=== PATIENT | female | born 1940 | race Caucasian/White ===

== ENCOUNTER 2018-07-01 13:58 | Outpatient (CLI) | payer MEDICARE, MEDICAID, SELFPAY ==
[2018-07-01 15:44] LABS: Anion Gap 11.4 mmol/L (3-11); BUN 15 mg/dL (7-18); CO2 26.6 mmol/L (21.0-32.0); Calcium 9.3 mg/dL (8.5-10.1); Chloride 106 mmol/L (98-107); Estimated GFR 48.04 (mL/min/1.73m2); Glucose 93 mg/dL (70-100); Potassium 3.8 mmol/L (3.5-5.1); Sodium 144 mmol/L (136-145)
[2018-07-01 15:59] LABS: TSH (W/Ref FT4) 0.44 uIU/mL (0.358-3.74)
== END 2018-07-01 14:18 ==
PROVIDERS: PCP Nurse Practitioner Family; Visit Provider Nurse Practitioner Family
DX: E03.9 Hypothyroidism, unspecified (principal); N18.3 Chronic kidney disease, stage 3 (moderate)
CPT/HCPCS: 36415; 80048; 84443

== ENCOUNTER → 2018-09-08 12:15 | Outpatient (BNVA) | payer MEDICARE, MEDICAID, SELFPAY | PROVIDERS: PCP Nurse Practitioner Family; Visit Provider Psychiatry & Neurology Neurology | DX: R25.1 Tremor, unspecified (principal); G43.109 Migraine with aura, not intractable, without status migrainosus; R26.9 Unspecified abnormalities of gait and mobility; G43.009 Migraine without aura, not intractable, without status migrainosus; I12.9 Hypertensive chronic kidney disease with stage 1 through stage 4 chronic kidney disease, or unspecified chronic kidney disease; N18.3 Chronic kidney disease, stage 3 (moderate) | CPT/HCPCS: 99205 ==

== ENCOUNTER 2020-05-15 13:17 | Outpatient (REF) | payer MEDICARE, MEDICAID, SELFPAY ==
[2020-05-15 12:29] LABS: Abs Immature Grans 0.03 10^3/uL (0.0-0.06); Absolute Basophil Count 0.04 10^3/uL (0.0-0.2); Absolute Eosinophil Count 0.23 10^3/uL (0.0-0.7); Absolute Lymphocyte Count 1.61 10^3/uL (1.2-3.4); Absolute Monocyte Count 0.71 10^3/uL (0.1-0.8); Absolute Neutrophil Count 3.39 10^3/uL (1.2-6.7); Basophils % 0.7; Eosinophils % 3.8; HCT 32.5 % (36.0-46.0); HGB 10.2 g/dL (11.2-15.7); Immature Grans % 0.5; Lymphocytes % 26.8; MCH 25.5 pg (27.0-33.0); MCHC 31.4 % (32.0-36.0); MCV 81.3 fL (80-95); Monocytes % 11.8; Neutrophils % 56.4; Nucleated RBC 0 %; Platelet Count 427 10^3/uL (130-400); RDW 16.2 % (11.7-14.6); RDW-SD 48.4 fL; WBC 6.01 10^3/uL (4.4-10.8)
[2020-05-15 13:13] LABS: Anion Gap 7.8 mmol/L (3-11); BUN 9 mg/dL (7-18); CO2 25.2 mmol/L (21.0-32.0); CREATININE 0.74 mg/dL (0.55-1.02); Calcium 8.6 mg/dL (8.5-10.1); Chloride 106 mmol/L (98-107); Glucose 57 mg/dL (74-106); Potassium 3.8 mmol/L (3.5-5.1); Sodium 139 mmol/L (136-145); TSH (W/Ref FT4) 0.18 uIU/mL (0.36-3.74)
[2020-05-15 13:29] LABS: FREE T4 1.44 ng/dL (0.76-1.46)
[2020-05-16 10:41] LABS: Prealbumin 9 mg/dL (20-40)
== END 2020-05-15 13:37 ==
LOC: LBN 13:17
PROVIDERS: PCP Nurse Practitioner Family; Visit Provider Nurse Practitioner Adult Health
DX: E03.9 Hypothyroidism, unspecified (principal); N18.30 Chronic kidney disease, stage 3 unspecified; M81.0 Age-related osteoporosis without current pathological fracture; R63.4 Abnormal weight loss
CPT/HCPCS: 80048; 84134; 84439; 84443; 85025

== ENCOUNTER 2021-11-18 10:49 | Outpatient (REF) | payer MEDICARE, MEDICAID, SELFPAY ==
[2021-11-18 15:24] LABS: Anion Gap 10.5 mmol/L (3-11); BUN 13 mg/dL (7-18); CO2 24.5 mmol/L (21.0-32.0); CREATININE 0.9 mg/dL (0.55-1.02); Calcium 8.8 mg/dL (8.5-10.1); Chloride 107 mmol/L (98-107); Glucose 76 mg/dL (74-106); Sodium 142 mmol/L (136-145); TSH (W/Ref FT4) 0.04 uIU/mL (0.36-3.74)
== END 2021-11-18 10:50 | disposition home or self-care (01) ==
LOC: LBN 10:49
PROVIDERS: PCP Nurse Practitioner Adult Health; Visit Provider Nurse Practitioner Adult Health
DX: E03.9 Hypothyroidism, unspecified (principal); N18.30 Chronic kidney disease, stage 3 unspecified; Z13.1 Encounter for screening for diabetes mellitus
CPT/HCPCS: 80048; 84439; 84443

== ENCOUNTER 2022-09-08 20:27 | Outpatient (REF) | payer MEDICARE, MEDICAID, SELFPAY ==
[2022-09-08 16:01] LABS: Anion Gap 3.6 mmol/L (3-11); BUN 11 mg/dL (7-18); CO2 34.4 mmol/L (21.0-32.0); CREATININE 0.8 mg/dL (0.55-1.02); Calcium 9.2 mg/dL (8.5-10.1); Chloride 104 mmol/L (98-107); Estimated GFR 73.52 (mL/min/1.73m2); Glucose 87 mg/dL (74-106); Potassium 4.1 mmol/L (3.5-5.1); Sodium 142 mmol/L (136-145); TSH (W/Ref FT4) 1.15 uIU/mL (0.36-3.74)
== END 2022-09-08 20:28 | disposition home or self-care (01) ==
LOC: LBN 20:27
PROVIDERS: PCP Nurse Practitioner Adult Health; Visit Provider Nurse Practitioner Adult Health
DX: E03.9 Hypothyroidism, unspecified (principal); R06.09 Other forms of dyspnea; N18.30 Chronic kidney disease, stage 3 unspecified; J44.9 Chronic obstructive pulmonary disease, unspecified; Z99.81 Dependence on supplemental oxygen
CPT/HCPCS: 80048; 84443

== ENCOUNTER 2023-04-30 13:59 | Inpatient (IN) | payer OTHER, SELFPAY ==
[2023-04-30 14:59] VITALS: PULSE 98; TEMP 37.2; O2SAT 99
[2023-04-30 15:50] VITALS: O2SAT 100
[2023-04-30] MEDS: fentaNYL 12 MCG PATCH TD (16:25)
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
--- NOTE | 2023-04-30 23:04 | PGE_ITS ---
Date of Service Date of service: 04/30/23 Time of Service: 22:00 Assessment and Plan Assessment and plan (1) Hospice care patient: Status: Acute (2) Decreased functional mobility and endurance: Status: Acute (3) Protein calorie malnutrition: Status: Chronic Qualifiers: Protein-calorie malnutrition severity: severe Qualified Code(s): E43 - Unspecified severe protein-calorie malnutrition (4) Chronic pain: Status: Chronic Qualifiers: Chronic pain type: chronic pain syndrome Qualified Code(s): G89.4 - Chronic pain syndrome (5) Chronic leg pain: Status: Chronic Qualifiers: Laterality: bilateral Qualified Code(s): M79.604 - Pain in right leg; M79.605 - Pain in left leg; G89.29 - Other chronic pain Subjective Subjective Patient reports: still having pain (on movement -- declining any re-positioning or cleaning or personal care) and tolerating liquids well Interval history since last seen: Pt seen when notified she is declining all meds, but c/o pain .. either when approached, attempted to reposition/washing Sat @ bedside in attempt to build rapport ... mild confusion, but feisty and adamant about not being moved/touched Emma shared that she didn't know why her son was angry, nor why they did not speak that day .. we called him and they spoke by phone > 15min I was faviola to add padding to side-board and place linen between ankles [very painful] and add a blanket I was able to mention medications .. she admitted taking ativan at times .. I recommended she reconsider ativan this evening .. she declined bu did agree she'd be able to ask for it if she changed her mind .. she drank a good amount over the course of our visit (30-40 min) .. she declined the pudding. I left request for basic care -- to offer her her drink hourly .. and to offer to call Truman again in approx 2 hours {I told Emma this same thing] I asked about how to change her, and she was adament not to be moved/changed/washed (I said no) .. I shared that should she change her mind, staff would trial morphine, wait ~ 20-30 minutes, then try... Emma shared that Riya changes her @ home .. but it did not seem likely to have Riya help her while in the hospital. I had turned down the tv volume while she s/w Truman .. she asked to turn back up ... She did nod when asked it I could try to turn down the lights .. I left tv on, curtain partially drawn.. [ ] offer drink hourly while awake .. she's able to hold it herself, but may need help with straw [ ] offer a call to Truman should she still be up @ midnight and want to talk with him again Objective Last Vital Signs Temp 98.9 F 04/30/23 14:59 Pulse 98 H 04/30/23 14:59 Pulse Ox 100 04/30/23 15:50 Time Spent with Patient Time Spent with Patient: 35-49 minutes Time was spent: referring, communicating with other health healthcare administrative assistant, counseling the patient and care coordination
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
--- NOTE | 2023-05-01 14:42 | CHAPLAIN ---
Emma is a hospice patient, here for a five-day respite period and pain management, but could on this admission, according to Hospice notes. Emma lives downstairs from her son who has been her primary care analyst. She was decline personal care because of pain. I visited twice today and she accepted offers of help to take sips of water. According to Hospice notes, family members have been in to visit today. Emma appears to be frail, and did not respond much, one-word answers when I spoke with her. I let her know that ventilating expert is available 10/11 if she would like company at any time.
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
[2023-05-03] MEDS: fentaNYL 12 MCG PATCH TD (09:45)
[2023-05-03] MEDS: fentaNYL 25 MCG PATCH TD (09:47)
[2023-05-03] MEDS: MORPHine 4 MG/ML SYR IV/SC (10:05)
[2023-05-03] MEDS: LORazepam 1 MG TAB PO ×2 (13:17→14:38)
--- NOTE | 2023-05-03 19:48 | NUR.NOTE ---
Nursing Note: upon entering, and shift report it was told to me that she had been given ativan and morphine today per family request to keep her comfortable. this rn was checking on pt and doing a breif comfort care assessment pt was found to be sedated. able to be aroused with minimal interaction from pt. pt appears to be breathing comfortably at this time, was able to say im fine. wctm.
--- NOTE | 2023-05-04 00:43 | NUR.NOTE ---
Nursing Note: pt denying repositioning, is still very sedated. pt refusing to have any more meds at this time. pt denies brief check. wctm
--- NOTE | 2023-05-04 08:55 | PDOC.CMPRO ---
Date of service: 05/04/23 Time of Service: 08:56 Care Management Progress Note Progress Note Text Progress Note Text: S/O:Emma remains on hospice respite. She is scheduled to return home tomorrow with her son as caregiver. She has appeared comfortable and was smiling earlier in the day although she does not communicate much verbally. A: Emma is an 82 year old woman admitted on 04/30/23 for hospice respite P:Emma will discharge back home on Thursday after her 5 days of respite care. She will follow up with the hospice care team and transport via EMS coordinated by CM.
--- NOTE | 2023-05-05 08:41 | CMPROGNOTE_ITS ---
Date of service: 05/05/23 Time of Service: 08:41 Care Management Progress Note Progress Note Text Progress Note Text: S/O: Emma was lying in bed comfortably when CM visited with her. Consuelo, lithography contact worker, was in the room visiting as well. Emma was changed to symptom management today, and will remain at [facility] for end of life care. Consuelo stated that she communicated this with her family, who is happy with the plan. CM will continue to follow. A: Emma is an 82 year old woman admitted on 04/30/23 for hospice respite P:Emma will remain at [facility] for end of life care. Hospice and CM will continue to follow.
[2023-05-05] MEDS: HYDROmorphone 100 MG in CADD PUMP CASSETTE 1 EACH, Normal Saline 90 ML SC INF (09:25)
[2023-05-05] MEDS: fentaNYL 25 MCG PATCH TD (09:40)
[2023-05-05] MEDS: fentaNYL 12 MCG PATCH TD (09:44)
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
--- NOTE | 2023-05-05 15:37 | CHAPLAIN ---
The social scientist from Hospice was sitting with Emma when I visited. She said Emma is not talking or responsive now. Emma's son and sister have been into visit. The social scientist wasn't sure if they would return. Emma lives alone in an apartment and her son lives in the apartment above her and would check on her. She came to [facility] for five days of Hospice respite, however it's likely she will stay here now. I will continue to visit.
--- NOTE | 2023-05-05 18:36 | NUR.NOTE ---
Family was called about the change in status with patient. around 2pm. after multiple attempts of trying to reach out.
[2023-05-05 23:12] VITALS: RESP 8
--- NOTE | 2023-05-06 02:55 | NUR.NOTE ---
This scenario writer received a call from pt's son, Truman, requesting an update. Update on pt's status given to Truman, made aware that pt sleeping comfortably and has not been awake tonight. Truman states if she dies and you guys try to call us and we don't answer, you can leave a message. Truman also states that he plans to visit later today with his sister and will reach out in the AM for an update from staff. All questions answered. Nursing Note:
--- NOTE | 2023-05-06 09:27 | PDOC.CMPRO ---
Date of service: 05/06/23 Time of Service: 16:09 Care Management Progress Note Progress Note Text Progress Note Text: S/O:Emma is receiving hydromorphone via sc infusion. She was lying in bed and appeared comfortable when CM went to see her. She has been somnolent and did not respond verbally to CM. A: Emma is an 82 year old woman admitted on 04/30/23 for hospice respite P:Emma will remain at [facility] for end of life care. Hospice and CM will continue to follow.
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
--- NOTE | 2023-05-06 16:38 | CHAPLAIN ---
Emma continues to be unresponsive. I sat with her this afternoon and will return this evening. Fr. Davila from [facility] visited Emma to today for anointing of the sick and last rites.
--- NOTE | 2023-05-06 16:39 | W.PM.PROGNOT ---
Date of Service Date of service: 05/06/23 Time of Service: 16:39 Objective Last Vital Signs Temp 37.2 C 04/30/23 14:59 Pulse 98 H 04/30/23 14:59 Resp 8 L 05/05/23 23:12 Pulse Ox 100 04/30/23 15:50
--- NOTE | 2023-05-06 18:20 | CHAPLAIN ---
Emma's daughter Madalyn and son Truman were in the room with her when I visited this evening. They'd been there several hours. I let them know that Fr. Davila had visited Emma this afternoon and offered her last rites. Madalyn said she appreciated that and was planning on asking if the clinical application consultant could visit. They were also appreciative of the prayer shawl Emma has on her. A cart of food and coffee has been provided for them. Emma remains unresponsive.
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
== END 2023-05-06 20:29 | disposition expired | DRG 190 ==
PROVIDERS: Admitting Provider Family Medicine; PCP Nurse Practitioner Adult Health; Visit Provider Family Medicine
DX: E43 Unspecified severe protein-calorie malnutrition (principal); R64 Cachexia; Z51.5 Encounter for palliative care; M79.604 Pain in right leg; M79.605 Pain in left leg; J44.9 Chronic obstructive pulmonary disease, unspecified; Z99.81 Dependence on supplemental oxygen; Z62.810 Personal history of physical and sexual abuse in childhood; G47.10 Hypersomnia, unspecified; Z74.01 Bed confinement status; R32 Unspecified urinary incontinence; R25.1 Tremor, unspecified; G43.E09 Chronic migraine with aura, not intractable, without status migrainosus; E03.9 Hypothyroidism, unspecified; N18.30 Chronic kidney disease, stage 3 unspecified; Z66 Do not resuscitate; D50.9 Iron deficiency anemia, unspecified; Z87.891 Personal history of nicotine dependence; I12.9 Hypertensive chronic kidney disease with stage 1 through stage 4 chronic kidney disease, or unspecified chronic kidney disease; M81.0 Age-related osteoporosis without current pathological fracture; E78.5 Hyperlipidemia, unspecified; K21.9 Gastro-esophageal reflux disease without esophagitis; F32.A Depression, unspecified; F10.21 Alcohol dependence, in remission; G40.909 Epilepsy, unspecified, not intractable, without status epilepticus; I49.3 Ventricular premature depolarization; F41.0 Panic disorder [episodic paroxysmal anxiety]; G89.4 Chronic pain syndrome
CPT/HCPCS: 00123; J1170; J2270